=== PATIENT | male | born 1970 | race Caucasian/White ===

== ENCOUNTER 2020-03-05 19:08 | Inpatient (IN) | payer MEDICAID ==
[~2020-03-05] VITALS: Ht 172.7 cm; Wt 64.6 kg
[2020-03-05] MEDS ORDERED: HYDROmorphone 1 MG/ML, 1ML INJ IV ONE (20:30)
[2020-03-05] MEDS ORDERED: DEXAMETHASONE 4 MG/ML, 1ML IVPush ONE (20:30)
[2020-03-05] MEDS ORDERED: AMPICILLIN/SULBACTAM 3 GM in SODIUM CHLORIDE 0.9% 100 ML IV ONE (20:30)
[2020-03-05] MEDS ORDERED: BENZOCAINE 20% SPRAY 0.5ML TP ONE (20:30)
[2020-03-05] MEDS ORDERED: DEXAMETHASONE 4 MG/ML, 5ML ONE (20:31)
[2020-03-05] MEDS ORDERED: BENZOCAINE 20% SPRAY 0.5ML ONE ×2 (20:31→22:22)
[2020-03-05] MEDS ORDERED: HYDROmorphone 1 MG/ML, 1ML INJ ONE (20:32)
[2020-03-05 20:57] LABS: BASOPHILS % (AUTO) 0 % (0-1); EOSINOPHILS % (AUTO) 0 % (1-7); LYMPHOCYTES % (AUTO) 6 % (22-44); MEAN CORPUSCULAR HEMOGLOBIN 29.8 pg (27.5-34.5); MEAN CORPUSCULAR HGB CONC 33.2 g/dL (33.2-36.2); MEAN PLATELET VOLUME 7.8 fL (7.4-10.4); MONOCYTES % (AUTO) 8 % (2-9); NEUTROPHILS % (AUTO) 86 % (42-75); PLATELET COUNT 317 x10^3/uL (130-400); RED BLOOD COUNT 5.32 x10^6/uL (4.38-5.82); RED CELL DISTRIBUTION WIDTH 13.6 % (9.4-14.8)
[2020-03-05 20:59] LABS: MD NO
[2020-03-05 21:11] LABS: ALBUMIN 3.9 g/dL (3.4-5.0); ANION GAP 4 mmol/L (5-15); CALCIUM 9.7 mg/dL (8.5-10.1); CHLORIDE 106 mmol/L (98-107); CREATININE 1.08 mg/dL (0.7-1.3)
--- NOTE | 2020-03-05 21:44 | NUR ---
PATIENT REPORTS SLIGHT DECREASE IN THROAT DISCOMFORT, WILL CONTINUE TO MONITOR.
[2020-03-05] MEDS ORDERED: LIDOCAINE-MPF 1%, 5ML ONE (22:22)
--- NOTE | 2020-03-05 23:04 | NUR ---
PATIENT RESTING ON STRETCHER WITH EYES CLOSED, NAD, WILL CONTINUE TO MONITOR.
[2020-03-05] MEDS ORDERED: HYDROmorphone 1 MG/ML, 1ML INJ IVPush PRN (23:30)
[2020-03-05] MEDS ORDERED: OMNIPAQUE 350 MG/ML, 100ML BOTTLE ONE (23:46)
--- NOTE | 2020-03-06 00:03 | NUR ---
PATIENT RESTING ON STRETCHER, NAD, WILL CONTINUE TO MONITOR
[2020-03-06] MEDS ORDERED: HYDROmorphone 1 MG/ML, 1ML INJ ONE ×4 (00:11→07:55)
--- NOTE | 2020-03-06 00:19 | NUR ---
REPORT FROM [facility] PT WAS JUST MEDICATED BY [facility] AND IS COMFORTABLE WITH NO NEEDS AT THIS TIME
[2020-03-06] MEDS ORDERED: SODIUM CHLORIDE FLUSH 10ML SYR IVF PRN (00:30)
[2020-03-06] MEDS ORDERED: LABETALOL 5MG/ML, 20ML IVPush PRN (01:30)
[2020-03-06] MEDS ORDERED: LIDODERM 5% PATCH TD PRN (01:30)
[2020-03-06] MEDS ORDERED: DOCUSATE 100 MG CAPSULE PO PRN (01:30)
[2020-03-06] MEDS ORDERED: ONDANSETRON 2MG/ML, 2ML IVPush PRN (01:30)
[2020-03-06] MEDS ORDERED: ACETAMINOPHEN 325 MG TABLET PO PRN (01:30)
[2020-03-06] MEDS ORDERED: morphine SULFATE 10 MG/ML, 1ML IVPush PRN (01:30)
[2020-03-06] MEDS ORDERED: MELATONIN 5 MG TABLET PO PRN (01:30)
[2020-03-06] MEDS: HYDROmorphone 2 MG/ML, 1ML IVPush PRN ×5 (02:24→16:54)
[2020-03-06] MEDS ORDERED: LORazepam 2 MG/ML, 1ML IV PRN ×4 (02:30)
[2020-03-06] MEDS ORDERED: POTASSIUM CHLORIDE 10 MEQ, MVI ADULT 10 ML, FOLIC ACID 1 MG, MAGNESIUM SULFATE 1 GM in ... IV SCH (02:30)
[2020-03-06] MEDS ORDERED: THIAMINE 200 MG in SODIUM CHLORIDE 0.9% 50 ML IV ONE (02:30)
--- NOTE | 2020-03-06 02:34 | NUR ---
PT MEDICATED FOR PAIN AT THIS TIME
[2020-03-06 04:38] LABS: BASOPHILS % (AUTO) 0 % (0-1); EOSINOPHILS % (AUTO) 0 % (1-7); LYMPHOCYTES % (AUTO) 4 % (22-44); MEAN CORPUSCULAR HGB CONC 33.5 g/dL (33.2-36.2); MEAN PLATELET VOLUME 7.7 fL (7.4-10.4); MONOCYTES % (AUTO) 1 % (2-9); NEUTROPHILS % (AUTO) 94 % (42-75); PLATELET COUNT 315 x10^3/uL (130-400); RED BLOOD COUNT 5.23 x10^6/uL (4.38-5.82); RED CELL DISTRIBUTION WIDTH 13.5 % (9.4-14.8)
[2020-03-06 04:39] LABS: MD NO
--- NOTE | 2020-03-06 05:56 | NUR ---
pt ambulated to br to void medicated with pain med and placed on monitors in nad vss
[2020-03-06] MEDS ORDERED: DEXAMETHASONE 4 MG/ML, 1ML ONE (07:43)
[2020-03-06] MEDS: AMPICILLIN/SULBACTAM 3 GM in SODIUM CHLORIDE 0.9% 100 ML IV SCH ×3 (08:10→20:02)
[2020-03-06] MEDS: DEXAMETHASONE 4 MG/ML, 1ML IVPush SCH ×3 (08:10→20:03)
--- NOTE | 2020-03-06 08:14 | NUR ---
unasyn started. Decadron given. Dilaudid given for 8/10 throat pain. VS updated and wnl. pt resting with no complaints. call button in lap. pt on continuous SPO2 monitor.
[2020-03-06] MEDS ORDERED: DEXAMETHASONE 4 MG/ML, 1ML IVPush SCH (09:00)
--- NOTE | 2020-03-06 09:18 | NUR ---
PHARMACY REQUEST SLIP SENT FOR THIAMINE.
[2020-03-06] MEDS ORDERED: THIAMINE 100 MG in SODIUM CHLORIDE 0.9% 50 ML IV SCH (09:30)
--- NOTE | 2020-03-06 10:02 | NUR ---
[facility] TELEPHONE HAND-OFF REPORT GIVEN TO JENNIFER CONNOLLY. PT READY TO GO TO HOSPITAL ROOM.
--- NOTE | 2020-03-06 10:13 | NUR ---
PT RESTING IN BED. C/O SORE THROAT. VSS
[2020-03-06] MEDS ORDERED: KETOROLAC 30 MG/1 ML IVPush SCH (11:00)
[2020-03-06] MEDS ORDERED: KETOROLAC 30 MG/1 ML ONE (11:01)
[2020-03-06] MEDS ORDERED: KETOROLAC 30 MG/1 ML IVPush PRN (11:30)
[2020-03-06 13:51] VITALS: BP 145/85
[2020-03-06] MEDS: LORazepam 2 MG/ML, 1ML IV PRN (14:11)
[2020-03-06] MEDS: KETOROLAC 30 MG/1 ML IVPush PRN (18:26)
[2020-03-06] MEDS: HYDROcodone/APAP 5/325 TABLET PO PRN (18:39)
[2020-03-06 19:44] VITALS: BP 149/88
[2020-03-07 00:16] VITALS: BP 102/61
[2020-03-07] MEDS: LORazepam 2 MG/ML, 1ML IV PRN (01:43)
[2020-03-07] MEDS: HYDROcodone/APAP 5/325 TABLET PO PRN ×3 (01:45→20:33)
[2020-03-07] MEDS: AMPICILLIN/SULBACTAM 3 GM in SODIUM CHLORIDE 0.9% 100 ML IV SCH ×4 (02:28→22:09)
[2020-03-07] MEDS: DEXAMETHASONE 4 MG/ML, 1ML IVPush SCH ×4 (02:28→22:09)
[2020-03-07] MEDS: [UNRECOGNIZED DRUG - OTHER] IV SCH (03:55)
[2020-03-07] MEDS: POTASSIUM CHLORIDE IV SCH (03:55)
[2020-03-07] MEDS: MAGNESIUM SULFATE IV SCH (03:55)
[2020-03-07] MEDS: THIAMINE IV SCH (03:55)
[2020-03-07] MEDS: FOLIC ACID IV SCH (03:55)
[2020-03-07] MEDS: KETOROLAC 30 MG/1 ML IVPush PRN ×2 (05:20→20:33)
[2020-03-07 05:58] LABS: CHLORIDE 106 mmol/L (98-107)
[2020-03-07 05:59] LABS: BASOPHILS % (AUTO) 1 % (0-1); EOSINOPHILS % (AUTO) 0 % (1-7); LYMPHOCYTES % (AUTO) 5 % (22-44); MEAN CORPUSCULAR HEMOGLOBIN 29.9 pg (27.5-34.5); MEAN CORPUSCULAR HGB CONC 33.1 g/dL (33.2-36.2); MEAN PLATELET VOLUME 8.1 fL (7.4-10.4); MONOCYTES % (AUTO) 4 % (2-9); NEUTROPHILS % (AUTO) 91 % (42-75); PLATELET COUNT 298 x10^3/uL (130-400); RED BLOOD COUNT 4.71 x10^6/uL (4.38-5.82); RED CELL DISTRIBUTION WIDTH 13.4 % (9.4-14.8)
[2020-03-07 06:04] LABS: CALCIUM 8.9 mg/dL (8.5-10.1); CREATININE 0.96 mg/dL (0.7-1.3)
[2020-03-07 06:08] LABS: MD NO
[2020-03-07 07:19] VITALS: BP 126/83
[2020-03-07 08:36] LABS: ANION GAP 5 mmol/L (5-15)
[2020-03-07 13:27] VITALS: BP 161/77
[2020-03-07] MEDS: HYDROmorphone 2 MG/ML, 1ML IVPush PRN (16:23)
[2020-03-07 19:49] VITALS: BP 125/74
[2020-03-08 01:33] VITALS: BP 145/86
[2020-03-08] MEDS: DEXAMETHASONE 4 MG/ML, 1ML IVPush SCH ×2 (04:22→08:31)
[2020-03-08] MEDS: KETOROLAC 30 MG/1 ML IVPush PRN (04:23)
[2020-03-08] MEDS: MAGNESIUM SULFATE IV SCH ×2 (04:23→06:14)
[2020-03-08] MEDS: POTASSIUM CHLORIDE IV SCH ×2 (04:23→06:14)
[2020-03-08] MEDS: FOLIC ACID IV SCH ×2 (04:23→06:14)
[2020-03-08] MEDS: THIAMINE IV SCH ×2 (04:23→06:14)
[2020-03-08] MEDS: AMPICILLIN/SULBACTAM 3 GM in SODIUM CHLORIDE 0.9% 100 ML IV SCH ×2 (04:23→09:31)
[2020-03-08] MEDS: [UNRECOGNIZED DRUG - OTHER] IV SCH ×2 (04:23→06:14)
[2020-03-08] MEDS: HYDROcodone/APAP 5/325 TABLET PO PRN ×2 (04:28→08:31)
[2020-03-08 07:55] VITALS: BP 123/70
[2020-03-08] MEDS ORDERED: DEXA4TAB66 PO (09:18)
[2020-03-08] MEDS ORDERED: AMOX1TAB64 PO (09:18)
[2020-03-08] MEDS ORDERED: HYDR-3237 PO (09:18)
== END 2020-03-08 11:45 | disposition home or self-care (01) | DRG 153 ==
LOC: ED 23:38 → EDIP 03-06 00:50 → 4NE 03-06 10:26 → DCLOUNGE 03-08 11:39
PROVIDERS: ADMIT Family Medicine; ATTEND Internal Medicine
DX: J36 Peritonsillar abscess (principal); F17.210 Nicotine dependence, cigarettes, uncomplicated; F12.90 Cannabis use, unspecified, uncomplicated; Z20.828 Contact with and (suspected) exposure to other viral communicable diseases
CPT/HCPCS: 36415; 70491; 80048; 82040; 85025; 85730; 86308; 87635; 93005; G0378; J0295; J1100; J1170; J1885; J3411; J3475; J3480; Q9967; J2060

== ENCOUNTER 2020-03-10 08:10 | Emergency (ER) | payer MEDICAID ==
[~2020-03-10] VITALS: Ht 172.7 cm; Wt 64.4 kg
[~2020-03-10 08:10] MED LIST: AMOX1TAB64 PO; DEXA4TAB66 PO; HYDR-3237 PO
[2020-03-10 08:11] VITALS: BP 122/87
--- NOTE | 2020-03-10 09:14 | NUR ---
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
--- NOTE | 2020-03-10 09:21 | NUR ---
PT CHANGED INTO GOWN. PT C/O WORSENING THROAT PAIN SINCE DX WITH ABSCESS IN THROAT ON THURSDAY. UPON ASSESSMENT, PT REPORTS UNABLE TO OPEN MOUTH WIDE ENOUGH FOR EVALUATION OF THROAT. "WHEN I GO TO THE DENTIST, THEY HAVE TO PUT A THING IN MY MOUTH TO KEEP IT OPEN" PT SHOWS NO WOB. RESPIRATIONS EVEN AND UNLABORED ON . AWAITING ERMD EVALUATION.
--- NOTE | 2020-03-10 09:34 | NUR ---
PT NOT IN ED ROOM AT THIS TIME. GOWN LEFT ON BED.
== END 2020-03-10 10:08 | disposition left against medical advice (07) ==
LOC: ED 08:58
DX: J02.9 Acute pharyngitis, unspecified (principal); Z53.21 Procedure and treatment not carried out due to patient leaving prior to being seen by health care provider